=== PATIENT | female | born 1990 | race Caucasian/White ===

== ENCOUNTER 2019-06-04 22:02 | Emergency (ER) | payer SELFPAY ==
[~2019-06-04] VITALS: Ht 167.6 cm; Wt 68.0 kg
[~2019-06-04 22:02] MED LIST: CEPH-37; SULF-35
[2019-06-04 22:16] VITALS: BP 149/98
== END 2019-06-04 23:16 | disposition left against medical advice (07) ==
LOC: ER 22:02 → EDUNIT# 22:02 → ER 23:16
DX: N89.8 Other specified noninflammatory disorders of vagina (principal); R10.30 Lower abdominal pain, unspecified; Z53.21 Procedure and treatment not carried out due to patient leaving prior to being seen by health care provider
CPT/HCPCS: 81002; 81025

== ENCOUNTER 2020-09-02 00:10 | Emergency (ER) | payer BC, OTHER ==
[~2020-09-02] VITALS: Ht 167.6 cm; Wt 68.0 kg
[2020-09-02 00:21] VITALS: BP 150/87
[2020-09-02] MEDS ORDERED: BACITRACIN TOP OINT 1 UD PKG TOP ONE (01:00)
== END 2020-09-02 01:40 | disposition home or self-care (01) ==
LOC: ER 00:10
DX: S51.812A Laceration without foreign body of left forearm, initial encounter (principal); S50.812A Abrasion of left forearm, initial encounter; W01.0XXA Fall on same level from slipping, tripping and stumbling without subsequent striking against object, initial encounter; Y93.89 Activity, other specified; Y92.89 Other specified places as the place of occurrence of the external cause; Y99.8 Other external cause status
CPT/HCPCS: 12002

== ENCOUNTER 2020-09-04 17:50 | Emergency (ER) | payer BC ==
[~2020-09-04] VITALS: Ht 167.6 cm; Wt 68.0 kg
[2020-09-04] MEDS ORDERED: ONDANSETRON ODT 4 MG TAB PO ONE (19:45)
[2020-09-04] MEDS ORDERED: ACETAMINOPHEN/CODEINE#3 (300/30mg) TAB PO ONE (19:45)
[2020-09-04 19:56] VITALS: BP 151/87
== END 2020-09-04 20:33 | disposition home or self-care (01) ==
LOC: ER 17:50
DX: M79.642 Pain in left hand (principal); R53.1 Weakness
CPT/HCPCS: 29125; 73130; 99283; Q0162